=== PATIENT | male | born 1990 | race Hispanic/Latino ===

== ENCOUNTER 2020-11-21 07:52 | Emergency (ER) | payer OTHER ==
[~2020-11-21] VITALS: Ht 167.6 cm; Wt 72.6 kg
[2020-11-21 08:23] VITALS: BP 136/91
[2020-11-21 08:32] VITALS: BP 136/91
--- NOTE | 2020-11-21 08:39 | ER.PDOC ---
General Chief Complaint: Skin Rash/Abscess Stated Complaint: INSECT BITE Time seen by MD: 08:32 Source: patient Exam Limitations: no limitations History of Present Illness Initial Comments This 30-year-old male comes in with complaint of a possible insect bite to his right upper back. Its just lateral of the spine and just superior to the scapula. Yesterday showed it to his boss and he put on an antibiotic ointment. Per the boss, it was much more inflamed yesterday than it is today. Patient denies anything known that may have caused this. It may well be an insect bite. However, I am more suspicious of staph infection. It is minimally inflamed now. It is indurated but no fluctuance. Timing/Duration: other Severity: mild Location: trunk Quality: painful Identified Cause: no Exposure: antibiotic ([id number] antibiotic ointment) Past Medical History Medical History: no pertinent history Surgical History: no surgical history Social History Smoking: less than 1 pack/day Alcohol Use: occassionally Drug Use: none Skin: see HPI All Other Systems: Reviewed and Negative Physical Exam Skin: warm/dry, nml color Location: back Character: asymmetric With: tenderness, swelling, induration Extremities: non-tender, nml ROM, no edema EENT: eyes nml inspection, lips/gums nml, pharynx nml Neck: trachea midline, no swelling Respiratory: no resp. distress, breath sounds nml CVS: reg. rate & rhythm, heart sounds nml Abdomen: non-tender, no organomegaly NEURO/PSYCH: oriented x 3, CN's nml as tested, motor nml, sensation nml, mood/affect nml Results/Orders Results/Orders Vital Signs Date Time Temp Pulse Resp B/P (MAP) Pulse Ox O2 Delivery O2 Flow Rate FiO2 11/21/20 08:23 98.0 65 18 11/21/20 08:23 98.0 65 18 99 ER DEPART Departure Time of Disposition: 08:40 Disposition: 01 HOME / SELF CARE / HOMELESS Impression: Primary Impression: Abscess Condition: Stable Referrals: PCP,UNKNOWN (PCP) PRIMARY CARE PROVIDER Duration or Time Spent with Pa: 15m EVA OLIVA MD Nov 21, 2020 08:39
== END 2020-11-21 09:04 | disposition home or self-care (01) ==
LOC: ER 07:52
DX: L02.212 Cutaneous abscess of back [any part, except buttock and flank] (principal)
CPT/HCPCS: 99283